=== PATIENT | female | born 1945 | race Caucasian/White ===

== ENCOUNTER 2018-12-24 10:24 | Inpatient (IN) | payer MEDICARE ==
--- NOTE | 2018-12-24 10:44 | ED ---
Syncope/Near Syncope - HPI Summary HPI Summary: 73 year old F brought in by EMS to [facility] from [place] independent living accompanied by complains of left frontal hematoma since hitting her frontal head after syncopal episode that occurred at 09:30 today 12/24/18. EMS states that they were called for syncopal episode about 1 hour ago (09:30) today 12/24/18. EMS states that when [place] staff nurse showed up to patient's room, patient's heart rate was low, and patient had a hematoma on her forehead from the syncopal episode. Upon EMS arrival to scene, patient was alert and oriented per EMS. When EMS moved patient to [facility], patient had another syncopal episode during which her eyes were open but patient "wasn't quite there " per EMS. EMS placed patient on classroom monitor and her heart rate was 26 BPM. EMS started an IV and administered 1 mg atropine total after which her heart rate improved to 40s. EKG done by EMS showed bradycardia per EMS. Blood glucose 202. BP's per EMS were 120's to 140's. Pt denies chest pain. Patient states she started having shortness of breath after her syncopal episode, in the ambulance , on her way to the ED. EMS reports of headache. Patient reports diffuse headache that started this morning immediately after she woke up. Patient reports posterior neck pain. Denies ear pain, jaw pain. Denies fever, nausea/ vomiting. She states she had difficultly cleaning her house this morning as it was taking her longer than usual to clean her house. Patient states she ambulates without a cane. The patient rates the pain 7/10 in severity per nurse triage note. Symptoms aggravated by nothing. Symptoms alleviated by 1 mg atropine. PMHx: hypertension for which she takes lisinopril. Denies PMHx LA and syncope. FHx: CHF in father. Vital signs while in room: HR 41 BPM, BP 140/61, O2 sat 96% Home Medications Medication Instructions Recorded Confirmed Type Calcium Carb/Vit D3/Minerals 2 tab PO DAILY 12/24/18 12/24/18 History [Calcium 600+D Plus Minera] Cetirizine* [ZyrTEC 10 MG TAB*] 10 mg PO DAILY 12/24/18 12/24/18 History Diclofenac 1% GEL (NF) [Voltaren 1 applic TOPICAL QID PRN 12/24/18 12/24/18 History 1% GEL (NF)] Fluticasone NASAL SPRAY 50MCG* 2 spray BOTH NARES DAILY 12/24/18 12/24/18 History [Flonase NASAL SPRAY 50MCG*] Folic Acid TAB* [Folvite TAB*] 400 mcg PO DAILY 12/24/18 12/24/18 History Magnesium Oxide TAB* [MagOx 400 250 mg PO DAILY 12/24/18 12/24/18 History TAB*] Vitamin B Complex CAP* [B Complex 1 cap PO DAILY 12/24/18 12/24/18 History CAP*] - History Of Current Complaint Hx Obtained From: Patient, Family/Dental Laboratory Manager - , Denilson, a retired anesthesiologist, EMS Onset/Duration: Sudden Onset, Lasting Hours - 09:30 (1 hour ago) today 12/24/18, then second episode near syncope/syncope when placed on EMS stretcher, Still Present Timing: Constant Context: Unwitnessed - first episode unwitnessed, Witnessed - second episode witnessed by EMS Activity At Onset: At Rest Associated Head Trauma: Yes Aggravating Factor(s): Nothing Alleviating Factor(s): Other - 1 mg atropine increased HR from 20's to 40's Associated Signs And Symptoms: Negative - ear pain, jaw pain, fever, nausea/ vomiting, chest pain, Headache, Shortness Of Breath, Other - posterior neck pain , shortness of breath Frequency: Episodes x___ - 2, Episodes Lasting ____ (in Mins/Days/Weeks/Years) - mins - Allergies/Home Medications Allergies/Adverse Reactions: Allergies Allergy/AdvReac Type Severity Reaction Status Date / Time No Known Allergies Allergy Verified 12/24/18 11:43 Home Medications: Home Medications Calcium Carb/Vit D3/Minerals [Calcium 600+D Plus Minera] 2 tab PO DAILY [History Confirmed 12/24/18] Cetirizine* [ZyrTEC 10 MG TAB*] 10 mg PO DAILY 12/24/18 [History Confirmed 12/24] Diclofenac 1% GEL (NF) [Voltaren 1% GEL (NF)] 1 applic TOPICAL QID PRN 12/24/18 [History Confirmed 12/24/18] Fluticasone NASAL SPRAY 50MCG* [Flonase NASAL SPRAY 50MCG*] 2 spray BOTH NARES DAILY 12/24/18 [History Confirmed 12/24/18] Folic Acid TAB* [Folvite TAB*] 400 mcg PO DAILY 12/24/18 [History Confirmed 11/04] Magnesium Oxide TAB* [MagOx 400 TAB*] 250 mg PO DAILY 12/24/18 [History Confirmed 12/24/18] Vitamin B Complex CAP* [B Complex CAP*] 1 cap PO DAILY 12/24/18 [History Confirmed 12/24/18] PMH/Surg Hx/FS Hx/Imm Hx Previously Healthy: No Cardiovascular History: Reports: Hx Hypercholesterolemia, Hx Hypertension Denies: Hx Myocardial Infarction Respiratory History: Reports: Hx Seasonal Allergies GI History: Reports: Hx Gastroesophageal Reflux Disease, Hx Irritable Bowel Musculoskeletal History: Reports: Other Musculoskeletal History - generalized muscle weakness, trochanteric bursitis Sensory History: Reports: Hx Contacts or Glasses, Hx Macular Degeneration Opthamlomology History: Reports: Hx Contacts or Glasses, Hx Macular Degeneration Psychiatric History: Reports: Hx Depression - Cancer History Hx Chemotherapy: No Hx Radiation Therapy: No - Surgical History Surgical History: Yes Surgery Procedure, Year, and Place: hysterectomy Infectious Disease History: No - Family History Known Family History: Positive: Cardiac Disease - CHF, Other - NEG: breast cancer - Social History Lives: With Family - at [facility] Alcohol Use: Daily Alcohol Amount: 3-4 glasses of white wine Substance Use Type: Reports: None Hx Tobacco Use: No Smoking Status (MU): Never Smoked Tobacco Review of Systems Positive: Fatigue. Negative: Fever ENT: Negative - jaw pain Negative: Ear Ache Negative: Chest Pain Positive: Shortness Of Breath Negative: Vomiting, Nausea Positive: no symptoms reported Musculoskeletal: Negative Positive: Other - left frontal hematoma Positive: Headache, Syncope Psychological: Normal All Other Systems Reviewed And Are Negative: Yes Physical Exam - Summary Physical Exam Summary: Appearance: Well-appearing, no pain distress, well-nourished Skin: Warm, color reflects adequate perfusion, dry, left frontal 3-cm hematoma, farhad on neck which she states has been there for years Head: Hematoma noted as described above Eyes: PERRL, EOMI, no nystagmus ENT: Normal inspection, no hemotympanum, no Fisher's sign, bite is in tact, no pain on jaw with palpation Neck: Supple, no nodes, no JVD, no spinal tenderness Respiratory: Lungs clear, normal breath sounds, no respiratory distress Chest wall: No rib tenderness, no crepitus, no ecchymosis Cardio: Bradycardia and regular rhythm, No murmur, pulses normal, brisk capillary refill Abdomen: Soft, nontender, no rebound, no guarding, no masses, non-distended Bowel sounds: Present Musculoskeletal: Strength Intact/ROM intact, no calf tenderness, no edema. Psychological: Normal Neuro: Alert, muscle tone normal, no focal deficit GCS: 15 Triage Information Reviewed: Yes Vital Signs Reviewed: Yes - Mar[place]and Coma Scale Best Eye Response: 4 - Spontaneous Best Motor Response: 6 - Obeys Commands Best Verbal Response: 5 - Oriented Coma Scale Total: 15 Procedures - Sedation Patient Received Moderate/Deep Sedation with Procedure: No Diagnostics - Laboratory Result Diagrams: 12/24/18 11:03 12/24/18 11:03 Lab Statement: Any lab studies that have been ordered have been reviewed, and results considered in the medical decision making process. - Radiology CXR Radiology Interpretation Completed By: Radiologist Summary of Radiographic Findings: NO ACTIVE CARDIOPULMONARY DISEASE. ED physician has reviewed this report. - CT Brain CT Interpretation Completed By: Radiologist Summary of CT Findings: 1. Mild soft tissue swelling about the forehead. 2. No acute intracranial abnormality. 3. Mild chronic small vessel ischemic disease is likely. ED physician has reviewed this report. Cervical spine CT Interpretation Completed By: Radiologist Summary of CT Findings: 1. No acute fracture or traumatic malalignment of the cervical spine. 2. Varying degrees of multilevel spondylosis results in at least moderate spinal canal. stenosis at C5-C6. Multilevel neural foraminal stenosis as above. 3. Multilevel spondylolisthesis as above. 4. Fusion of the facets on the left at C6-C7. ED physician has reviewed this report. - EKG 1048 Cardiac Rate: Bradycardia - 38 BPM EKG Rhythm: 3rd Degree HB ST Segment: Non-Specific Ectopy: None EKG Comparison: Other - no prior to compare Summary of EKG Findings: An EKG at 10:48 reveals rate of 38 BPM. 3rd degree heart block. No prior EKG to compare. ED MD has reviewed and interpreted this EKG. Re-Evaluation - Re-Evaluation First Eval Re-Evaluation Time: 10:47 Change: Unchanged Comment: in room with patient. he confirms that patient is Full Code. she reports no chest pain, no distress. HR 37, BP 140/61 Second Eval Re-Evaluation Time: 12:10 Change: Unchanged Comment: Dr. Guillen, liquid waste treatment plant operator, in room with patient Third Eval Re-Evaluation Time: 12:41 Change: Worse Comment: Patient having long pauses with no beats. Patient is alert and talking. Dr. Guillen, liquid waste treatment plant operator, is aware Fourth Eval Re-Evaluation Time: 12:48 Change: Unchanged Comment: Dr. Guillen evaluated patient for long pauses Fifth Eval Re-Evaluation Time: 12:56 Change: Worse Comment: ABC Alert. Dr. Guillen and Dr. Sauceda in room with patient Course/Dx Course Of Treatment: 73 year old F arriving via EMS to [facility] from [facility] accompanied by complains of left frontal hematoma, headache, and bradycardia (in the 20's with good BP), and hitting her frontal head after unwitnessed syncopal episode that occurred at 09:30 today 12/24/18. Pt had a second syncope episode witnessed by EMS upon loading pt on the EMS stretcher, with HR in the 20's, was given atropine 1mg IV, with improvement of HR to 40's with adequate BP 120's -140's systlic. Physical exam findings: The patient is well-appearing, in no pain distress. She has a left frontal 3-cm hematoma and a farhad on neck which she states has been there for years. She is bradycardic. Patient medications reviewed this visit. Nurses notes reviewed. Allergies noted. High blood pressure noted. Bloodwork results with no significant abnormalities except for MCH 32, absolute lymphs 0.8, carbon dioxide 18, anion gap 15, glucose 162, lactic acid 3.1, magnesium 1.7, AST 99, ALT 60, troponin I 0.07, BNP 170, thyroxine 4.53. Aware of lactic acid 3.1 and troponin 0.07 at 11:46. An EKG at 10:48 reveals rate of 38 BPM. 3rd degree heart block. No prior EKG to compare. CXR shows, per radiologist: NO ACTIVE CARDIOPULMONARY DISEASE. CT Brain shows, per radiologist: 1. Mild soft tissue swelling about the forehead. 2. No acute intracranial abnormality. 3. Mild chronic small vessel ischemic disease is likely. CT Cervical spine shows, per radiologist: 1. No acute fracture or traumatic malalignment of the cervical spine. 2. Varying degrees of multilevel spondylosis results in at least moderate spinal canal. stenosis at C5-C6. Multilevel neural foraminal stenosis as above. 3. Multilevel spondylolisthesis as above. 4. Fusion of the facets on the left at C6-C7. In the ED course, the patient was given ice for the hematoma. At 11:02, spoke with Dr. Sauceda, cardiology, who will evaluate patient 's EKG and call back. Dr. Sauceda recommends admission to the hospitalist at 11: 30. Spoke with [address] Valles, hospitalist, at 11:40 who recommends calling the liquid waste treatment plant operator. Dr. Guillen, liquid waste treatment plant operator, is in room with patient at 12:10. Dr. Guillen agrees to admit patient. The patient will be admitted to Dr. Guillen. The patient is agreeable with this plan. While in the ED, the patient had long pause with p waves but no complexes. Spoke with Dr. Guillen at 12:43 who is aware. He evaluated patient for the long pauses at 12:48. At 12:56, patient with twitching movements, decreased responsiveness and long pause. ABC Alert called at 12:56. Dr. Guillen and Dr. Sauceda are in room. They intubated the patient. Dr. Sauceda placed temporary transvenous pacer. See ABC alert sheet. - Diagnoses Differential Diagnosis/HQI/PQRI: Positive: Coronary Artery Disease, Dysrhythmia , Myocardial Infarction, Vasovagal Episode Provider Diagnoses: Third degree heart block, Temporary transvenous cardiac pacemaker present, Hypotension, Syncope During the Visit The Following Alert/Code Occurred: ABC Alert - 12:56 - Physician Notifications Discussed Care of Patient With: Carlos Sauceda Time Discussed With Above Provider: 11:02 Instructed by Provider To: Other - Dr. Sauceda, cardiology, will evaluate patient' s EKG and call back. Dr. Sauceda recommends admission to the hospitalist at 11: 30. Spoke with Dr. Valles, hospitalist, at 11:40 who recommends calling the liquid waste treatment plant operator. Dr. Guillen, liquid waste treatment plant operator in room with patient at 12:10. He is aware of long pauses with p waves and no complexes at 12:43. - Critical Care Time Critical Care Time: 30-74 min - 30 minutes Discharge ED - Sign-Out/Discharge Documenting (check all that apply): Patient Departure - Admit to ICU All imaging exams completed and their final reports reviewed: Yes - Discharge Plan Condition: Stable Disposition: ADMITTED TO [facility] - Billing Disposition and Condition Condition: STABLE Disposition: Admitted to [facility] - Attestation Statements Document Initiated by Scribe: Yes Documenting Scribe: Cammie Colin Provider For Whom Raúl is Documenting (Include Credential): Ingrid Mariscal MD Scribe Attestation: Camime Del Cid, scribed for Ingrid Mariscal MD on 12/25/18 at 0215. Scribe Documentation Reviewed: Yes Provider Attestation: The documentation as recorded by the Cammie meza accurately reflects the service I personally performed and the decisions made by me, Ingrid Mariscal MD Status of Scribe Document: Viewed
[2018-12-24 11:22] LABS: ABS Lymphocytes 0.8 10^3/ul (1.0-4.8); ABS Monocytes 0.6 10^3/ul (0-0.8); ABS Neutrophils 5.6 10^3/ul (1.5-7.7); Eosinophil % 0.4 %; Hematocrit 41 % (35-47); Hemoglobin 13.7 g/dL (12.0-16.0); Mean Corpuscular HGB Conc 33 g/dL (31-36); Mean Corpuscular Hemoglobin 32 pg (27-31); Mean Corpuscular Volume 96 fL (80-97); Mean Platelet Volume 7.9 fL (7.4-10.4); Platelet Count 268 10^3/uL (150-450); Red Blood Count 4.24 10^6 /uL (3.70-4.87); Red Cell Distribution Width 14 % (10-15); White Blood Count 7.1 10^3/uL (3.5-10.8)
[2018-12-24 11:30] LABS: Activated Partial Thrombo Time 28.5 seconds (26.0-38.0); INR 0.89 (0.82-1.09)
[2018-12-24 11:46] LABS: Troponin I 0.07 ng/mL (<0.04)
[2018-12-24 11:56] LABS: ALT 60 U/L (7-52); AST 99 U/L (13-39); Albumin 4.3 g/dL (3.2-5.2); Alkaline Phosphatase 72 U/L (34-104); Anion Gap 15 mmol/L (2-11); BUN/Creatinine Ratio 14.3 (8-20); Blood Urea Nitrogen 11 mg/dL (6-24); CO2 Carbon Dioxide 18 mmol/L (22-32); Chloride 106 mmol/L (101-111); Creatine Kinase 65 U/L (10-223); EGFR African American 88.7 (>60); EGFR Non-African American 73.3 (>60); Globulin 2.2 g/dL (2-4); Glucose 162 mg/dL (70-100); Magnesium 1.7 mg/dL (1.9-2.7); Sodium 139 mmol/L (135-145); Total Protein 6.5 g/dL (6.4-8.9)
[2018-12-24 12:11] LABS: T4, Total 4.53 mcg/dL (6.09-12.23)
[2018-12-24 12:15] LABS: TSH (Thyroid Stimulating Horm) 3.83 mcIU/mL (0.34-5.60)
[2018-12-24] MEDS ORDERED: ceFAZolin 2 GM in NS PREMIX(*) 2 GM/100 ML BAG IVPB ONE ×2 (12:29→12:57)
[2018-12-24] MEDS ORDERED: ceFAZolin 1 GM/10 ML flush(*) SYRINGE for pocket flush (cardiology) FLUSH ONE (12:29)
--- NOTE | 2018-12-24 12:46 | HP ---
H&P (Free Text) History and Physical: History and Physical -- Critical Care Limitations in history/physical: none HPI: 73y F w/pmhx of HTN, depression; comes in to ER via EMS for syncope at [facility] ([place]). This mornign she was cleaning the house and had weakness for 45 min, denied cp/sob at that time. She sat down, got up and suddenly felt weak and felt she almost blacked out. She fell and was awake the whole time and remembers hitting her head. She was on floor, as assitant called for help. She felt some slight shortness of breath on the floor. no chest pain. no dizziness/headache. nausea none. She vomitted once when the nurse came to see her. She felt no palpitations. He noted a slow heart rate, EMS was called, noted HR 20s, given atropine 1mg and improved to 40s. She was taken to [facility] ER. She reports episodic weakness the past few months, was told normal BP and HR when she got checked by her PCP. She is compliant with her medications (lisinopril, zoloft). no history of rashes. Walks with a cane. in ER, she is awake, alert. HR 50s. BP stable. on RA, no distress. EKG noted to have complete heart block with junctional escape rhythm, no acute st/t change changes noted, some inferior inverted twaves noted. Cardiology has consulted; discussed with patient plan for PPM insertion. ED/floor Course: as above ROS: negative except for pertinent positives mentioned above PMHx: Hypertension, Depression PSHx: hysterectomy Family History: none significant Social History: Alcohol-~1 bottle of wine/day, Smoking-none, Drug use-none; Job- none; lives with in [facility] facility Allergies: Allergies Allergy/AdvReac Type Severity Reaction Status Date / Time No Known Allergies Allergy Verified 12/24/18 11:43 Home Medications: Calcium Carb/Vit D3/Minerals [Calcium 600+D Plus Minera] 2 tab PO DAILY [History Confirmed 12/24/18] Cetirizine* [ZyrTEC 10 MG TAB*] 10 mg PO DAILY 12/24/18 [History Confirmed 12/24] Diclofenac 1% GEL (NF) [Voltaren 1% GEL (NF)] 1 applic TOPICAL QID PRN 10/08/19 [History Confirmed 12/24/18] Fluticasone NASAL SPRAY 50MCG* [Flonase NASAL SPRAY 50MCG*] 2 spray BOTH NARES DAILY 12/24/18 [History Confirmed 12/24/18] Folic Acid TAB* [Folvite TAB*] 400 mcg PO DAILY 12/24/18 [History Confirmed 11/04] Magnesium Oxide TAB* [MagOx 400 TAB*] 250 mg PO DAILY 12/24/18 [History Confirmed 12/24/18] Vitamin B Complex CAP* [B Complex CAP*] 1 cap PO DAILY 12/24/18 [History Confirmed 12/24/18] Tele: sinus rhythm with complete heart block, HR 50s Vitals: Vital Signs Temp 96.9 F 12/24/18 10:26 Pulse 40 12/24/18 10:26 Resp 16 12/24/18 10:26 BP 140/61 12/24/18 10:26 Pulse Ox 95 12/24/18 10:26 Intake & Output 12/23/18 12/24/18 12/24/18 18:59 06:59 18:59 Weight 62.142 kg O2/Vent: RA Infusions: NS 75cc/hr Current Medications: Cefazolin Sodium/Dextrose (Kefzol Syringe 1 Gm/10 Ml Flush Syringe(*)) 1 gm FLUSH ONCE ONE Stop: 12/24/18 12:30 Cefazolin Sodium/Dextrose (Kefzol 2 Gm Premix In Ors(*)) 2 gm in 50 mls @ 100 mls/hr IVPB ONCE ONE Stop: 12/24/18 12:58 Sodium Chloride (Ns 0.9% 1000 Ml) 1,000 mls @ 75 mls/hr IV PER RATE SPENCER Physical Exam: Constitutional: awake, alert, no distress, no diaphoresis Head: left frontal/supraorbital small hematoma/swelling, nonttender Eyes: no pallor, no icterus ENT: moist mucous membranes Neck: soft, supple, no jvd, no stridor CVS: otoniel+, regular, no murmur Chest/Resp: bilateral air entry, no rhales, no wheeze, no rhonchi, no acc muscle use Abdomen/GI: soft, nontender, nondistended, BS+ Ext/Msk: warm, pulses+, no edema Skin: intact, warm Neuro: awake, alert, orientedx3, moving all extremities, no gross focal deficit Psych: normal affect Labs: reviewed Imaging: CT brain 12/24 - small soft tissue swelling on left frontal CXR - no acute infiltrate noted Assessment: 73y F w/pmhx of HTN, depression; comes in to ER via EMS for syncope at [facility] ([place]). Pre-syncope/syncope episode, vomitting x1. FOund to have bradycardia 20s, given atropine by EMS. Shortness of breath after fall. EKG in ER demonstrating NSR with complete heart block and junctional escape. -Complete Heart block with junctional escape -Hyperlactatemia 2/2 to hypoperfusion -Weakness -Shortness of breath Plan: Neuro- -syncope/fall likely from hypoperfusion from CHB -keep bedrest -nonfocal findings on exam -Left frontal small hematoma; CT brain negative. -does drink 1 bottle of wine/day; keep WAM protocol; last drink yesterday -Delirium prec; avoid BDZ CVS- -HR CHB; stable BP now -Cardiology consult; plan for PPM today? -TTE for eval of dyspnea/syncope -mild troponin rise, trend q6h; EKG with mild inferior twave inv -Maintain MAP>65 Resp- -RA, no distress -No active shortness of breath at this time -CXR with minimal/no congestion -Wean Fio2 to keep sat>92% ID- afebrile. wbc normal. CXR without focal process. -Abx for PPM implantation ordered GI- -NPO for PPM -GI prophylaxis Renal- -noted elevated LA, likely from hypoperfusion -IVF NS 75cc/hr, reassess -strict I/O, replete to keep K>4, Mg>2 -baird as indicated Heme- hg stable, no bleeding Endo- Maintain BG<200, insulin protocol as needed. check hba1c Musculsk- pressure ulcer prophylaxis. Bedrest. Wounds- none Nutrition- NPO DVT prophylaxis: SCD GI prophylaxis: - Central Line:- Arterial Line:- Baird Cathetor:- Disposition: Admit to ICU; Expected LOS>2 midnights; Patient requires Critical Care/ICU for complete heart block Patient Clinical Status: guarded Code Status: full code Seamus Guillen MD Signal Tester (Electronically Signed)
[2018-12-24] MEDS ORDERED: DOPamine 800 MG/250 ML IVPREM* 800 MG/250 ML ML CENTR SCH ×2 (13:00)
--- NOTE | 2018-12-24 13:52 | PN ---
Progress Note - Progress Note Date of Service: 12/24/18 Note: Critical Care Called for bradycardia which worsened, came down HR 30s slower, Was going to start dopamine infusion. Patient then became more bradycardic to 30s, then developed asystole. CPr started for a few seconds, she awoke. Given atropine 1mg IV push. Started TCP pacing but not capturing despite mA 66 and Rate 60. Atropine seemed to have worked and HR 30s Dr came to bedside, placed TVP RIJ to pace 70. Awake, alert, no distress. on NC, sats okay. BP stable now. plan for PPM today still. at bedside, updated. Assessment- -Cardiac Arrest -Complete Heart block I was present during this episode/code Seamus Guillen MD Asset Protection Lead
[2018-12-24] MEDS ORDERED: Lidocaine 1% INJ* 10 MG/ML 30 ML SDV ONE (14:06)
[2018-12-24] MEDS ORDERED: Midazolam* 1 MG/ML 5 ML VIAL (5 MG) ONE (14:08)
[2018-12-24] MEDS ORDERED: Atropine SYRINGE* 0.1 MG/ML 10 ML SYRINGE (1 MG) ONE (14:08)
[2018-12-24] MEDS ORDERED: fentaNYL* 50 MCG/ML 2 ML VIAL (100 MCG VIAL) ONE (14:08)
[2018-12-24] MEDS ORDERED: Ondansetron INJ* 2 MG/ML VIAL ONE (14:13)
--- NOTE | 2018-12-24 14:42 | CONS ---
CC: Dr. Beatrice Lambert * CARDIOLOGY CONSULTATION: DATE OF CONSULT: 12/24/18 INDICATION FOR CONSULTATION: Third-degree heart block. HISTORY OF PRESENT ILLNESS: The patient is a 73-year-old female with little past medical history, who has been feeling more weak and tired for the past couple of days. This morning, she got up to clean her house and was feeling profoundly weak. She said she would make her bed and then have to sit and rest. She had another episode where she was cleaning her countertops and had to sit down and rest. She denied any angina. She denied any palpitations. She denied any profound shortness of breath or nausea. The patient states that at one point she went to turn to go to the bathroom, felt weak and ended up on the floor. She says she woke almost immediately and was concerned that she may have broken her glasses in the fall. She denied any pain when she had the fall. She did describe a little bump on her head. At that time, she decided to come to the emergency room. In the emergency room, she was found to have a third-degree heart block. PAST MEDICAL HISTORY: Significant for chronic pain, osteoarthritis, osteoporosis. PAST SURGICAL HISTORY: Unknown. OUTPATIENT MEDICATIONS: 1. Folic acid 400 mg a day. 2. Zyrtec 10 mg a day. 3. Voltaren topical as needed 4 times a day. 4. Calcium carbonate vitamin once a day. 5. Flonase nasal spray 2 sprays b.i.d. 6. Magnesium oxide 250 mg daily. ALLERGIES: No known drug allergies. FAMILY HISTORY: No family history of early coronary artery disease or cardiac arrhythmias. SOCIAL HISTORY: She is retired. She lives with her who is a retired anesthesiologist. She was previously living in [place], recently moved to the [facility]. She now lives at [facility]. She denies tobacco use. She does have heavy alcohol use. No illicit drug use. REVIEW OF SYSTEMS: Negative for fevers or chills. Negative for changes in bowel or bladder habits. Negative for changes in weight. Other 12-point review is unremarkable. PHYSICAL EXAM: Height is 5 feet 1 inch, weight 137 pounds, temperature 96.9, heart rate 40, blood pressure 140/61, respiratory rate is 16, oxygen saturation 95% on room air. Sclerae anicteric. Oropharynx is pink without erythema. Carotids are 2+ without bruits. JVD is normal. Thyroid is normal. Cardiac Exam: S1, S2 without any murmurs, rubs, or gallops. Lungs are clear to auscultation bilaterally. There is no dullness to percussion. Abdomen is soft , nontender, nondistended with normoactive bowel sounds. Extremities show no edema. She has 2+ pulses throughout. The patient is awake, alert, and oriented. She moves all 4 extremities equally. DIAGNOSTIC STUDIES/LAB DATA: CBC within normal limits. Chemistries within normal limits. Troponin is minimally elevated at 0.07. TSH is normal. AST and ALT are minimally elevated. EKG shows third-degree heart block. No evidence of ST segment elevation or depression. IMPRESSION: This is a 73-year-old female who is admitted to the hospital with third-degree heart block and syncope. The patient does not have any reversible causes for atrial fibrillation, no recent rashes, no medications that would cause heart block. PLAN: For now my recommendation, the patient to undergo dual-chamber pacemaker implantation. The risks and benefits of this were described in great detail to her and her . They agreed to proceed. Further recommendations after her pacemaker implantation. [id number]/[facility] #: [id number] DOMENIC
[2018-12-24] MEDS ORDERED: Acetaminophen TAB* 325 MG PO PRN (16:30)
[2018-12-24] MEDS ORDERED: Zolpidem TAB* 5 MG PO PRN (16:33)
[2018-12-24] MEDS: oxyCODONE/Acetamin 5/325 MG* TAB PO PRN ×2 (17:56→22:58)
--- NOTE | 2018-12-24 20:49 | PRO ---
CC: Dr. Beatrice Lambert * DATE OF PROCEDURE: 12/24/18 - ROOM #442 PROCEDURE: Temporary pacemaker implantation. INDICATION: Third-degree heart block, asystole. The patient is a 73-year-old female who had a syncopal episode at home. When she arrived in the emergency room, she was in third-degree heart block. She was scheduled for a permanent pacemaker implantation later in the afternoon. The patient suddenly had 20 seconds of non-conducted P waves and a near syncopal episode. Because of the urgency of the situation, a temporary wire was recommended. A total of 45 minutes of critical care time was attended to this patient. DESCRIPTION OF PROCEDURE: The patient was placed in the Trendelenburg position. Her right anterior neck was prepped and draped in the usual fashion. 1% lidocaine was used for local anesthesia. Under ultrasound guidance, the jugular vein was entered via Seldinger technique and a guidewire was placed. Over the guidewire, a 5-Kinyarwanda sheath introducer was placed and sutured into position. Through the sheath, a balloon-tipped temporary pacing wire was placed under active pacing. The pacemaker captured all the way down to 1 millivolt. The wire was sutured into the position. The patient was brought to the operating room for dual chamber pacemaker implantation. The patient tolerated the procedure well and there were no complications. [id number]/CPS #: [id number] MTDD
[2018-12-24] MEDS: ceFAZolin VIAL(*) 1 GM in NS 0.9% 50 ML* 50 ML IVPB SCH (21:30)
[2018-12-24] MEDS: NS 0.9% 1000 ML** 1,000 ML IV SCH (21:33)
--- NOTE | 2018-12-24 23:40 | OP ---
CC: Dr. Beatrice Lambert * DATE OF OPERATION: 12/24/18 - ROOM #442 DATE OF : 43 SURGEON: Carlos Sauceda MD ANESTHESIA: Local anesthesia with conscious sedation. PRE-OP DIAGNOSIS: POST-OP DIAGNOSIS: OPERATIVE PROCEDURE: Dual chamber pacemaker implantation. INDICATION FOR PROCEDURE: Third-degree heart block. The patient is a 73-year-old female who was admitted to the emergency room after having a syncopal episode at home. While she was in the emergency room, she had a third-degree heart block and then had runs of P-wave nonconduction after 30 seconds with loss of consciousness. The patient underwent emergency temporary wire implantation and then on to permanent pacemaker implantation. ESTIMATED BLOOD LOSS: Nil. COMPLICATIONS: None DESCRIPTION OF PROCEDURE: The patient was brought to the procedure room in a fasting state. Informed consent had been obtained prior to the procedure. All labs were reviewed. The patient was placed supine on the procedure table. Her left deltopectoral area was cleaned and draped in the usual fashion. 1% lidocaine was used for local anesthesia. Under ultrasound guidance, the axillary vein was entered by a Seldinger technique and a guidewire was placed. A second guidewire was placed in the same technique. A 3.5-cm incision was made in the pectoral area and blunt dissection was carried down to the pectoral fascia and a pacemaker pocket was made. Over the guidewire, a 7-[place] African sheath introducer was made, through which a right ventricular lead was advanced to the RV apex. The right ventricular lead is a Medtronic, model 5076, serial number [id number], had an impedance of 755 ohms, threshold 0.9 volts at 0.5 milliseconds. The ventricular lead was sutured to the pectoral fascia. Over the second guidewire, a 7-[place] African sheath introducer was placed, through which a right atrial lead was advanced to the high right atrium. The right atrial lead is a Medtronic model 5076, serial number [id number], a P-wave sensitivity of 2.1 , impedance 624 ohms, threshold 2 volts at 0.5 milliseconds. The atrial lead was sutured to the pectoral fascia. Under fluoroscopic guidance, the temporary wire was removed showing no disturbance of the atrial or ventricular lead. The atrial and ventricular leads were attached appropriately to the pacemaker generator. The generator was placed in the pocket. The device was interrogated and noted to be functioning normally. The surgical incision was closed in 3 layers. The patient was returned to her room in stable condition. [id number]/[facility] #: [id number] DOMENIC
[2018-12-25] MEDS: ceFAZolin VIAL(*) 1 GM in NS 0.9% 50 ML* 50 ML IVPB SCH ×2 (03:47→12:25)
--- NOTE | 2018-12-25 07:54 | PN ---
Subjective Date of Service: 12/25/18 Interval History: HD 2 on 12/25/2018 73 y/o F with history of HTN and depression presented with syncope and vomiting ; EMS noted HR of 20's- inc to 40 after atropine; Found to have complete heart block; Hah cardiac arrest with asystole in ED; awoke with CPR; underwent PPM. Vitals stable now. HR in 70. Does not have any complaint. No chest pain, dizziness or weakness Drinks 2-3 glasses of wine every day; around 4 drinks during events Objective Active Medications: Acetaminophen (Tylenol Tab*) 650 mg PO Q4H PRN PRN Reason: PAIN - MILD Cetirizine HCl (Zyrtec*) 10 mg PO DAILY [facility] Fluticasone Propionate (Flonase Nasal [place] 50mcg*) 2 spray BOTH NARES DAILY [facility] Sodium Chloride (Ns 0.9% 1000 Ml) 1,000 mls @ 75 mls/hr IV PER RATE [facility] Last Admin: 12/24/18 21:33 Dose: 75 mls/hr Cefazolin Sodium 1 gm/ Sodium (Chloride) 50 mls @ 200 mls/hr IVPB Q8H [facility] Stop: 12/25/18 12:44 Last Admin: 12/25/18 03:47 Dose: 200 mls/hr Oxycodone/Acetaminophen (Percocet 5/325 Tab*) 1 tab PO Q4H PRN PRN Reason: PAIN - MODERATE Last Admin: 12/24/18 22:58 Dose: 1 tab Zolpidem Tartrate (Ambien Tab*) 5 mg PO ONCE PRN PRN Reason: INSOMNIA Vital Signs - 8 hr 12/24/18 12/25/18 12/25/18 23:59 00:00 03:36 Temperature 98.1 F Pulse Rate 74 Respiratory 16 18 Rate Blood Pressure 118/74 (mmHg) O2 Sat by Pulse 94 94 Oximetry 12/25/18 12/25/18 04:00 04:01 Temperature 98.8 F Pulse Rate 71 Respiratory 18 Rate Blood Pressure 111/58 (mmHg) O2 Sat by Pulse 94 94 Oximetry Oxygen Devices in Use Now: None Exam: Patient is lying on a bed with no acute distress. HEENT: Normocephalic and atraumatic; Dressing wound on right neck; bruise present Lungs: clear vesicular sound heard with no murmur Heart: S1/S2 heard with no murmur Abdomen: Soft, nondistended and nontender. Normal BS heard Extremities: No swelling Neuro: Alert, conscious and oriented. Moving all four extremities equally Result Diagrams: 12/24/18 11:03 12/25/18 13:50 Assess/Plan/Problems-Billing Assessment: 73 y/o F with history of HTN and depression presented with syncope and vomiting ; EMS noted HR of 20's- inc to 40 after atropine; Found to have complete heart block; Had cardiac arrest with asystole in ED; awoke with CPR; underwent PPM. No complaint at present - Patient Problems (1) Cardiac arrest Current Visit: Yes Status: Acute Code(s): I46.9 - CARDIAC ARREST, CAUSE UNSPECIFIED SNOMED Code(s): 284069414 Comment: Had asystole in ED; Woke after CPR and Atropine HR was in 30's Started transcutaneous pacing but didnot capture; placed TVP and underwent PPM Secondary to Complete Heart Block Stable now HR is in 70's No symptom (2) Complete heart block Current Visit: Yes Status: Acute Code(s): I44.2 - ATRIOVENTRICULAR BLOCK, COMPLETE SNOMED Code(s): 25752280 Comment: Presented with weakness, vomiting and syncope No history of Heart disease and not on any AV blocking meds. No tick bite; History negative for lyme disease, sarcoidosis, amyloidosis Electrolyte normal Cause unknown; could be fibrosis and sclerosis of conducting system as a part of normal aging Underwent PPM; Got cefazolin No symptom at present Echo normal with EF of 55-60%. (3) Hypertension Current Visit: Yes Status: Acute Code(s): I10 - ESSENTIAL (PRIMARY) HYPERTENSION SNOMED Code(s): 90613777 Comment: Used to take lisinopril 20 mg daily Bp on soft side On hold (4) Depression Current Visit: Yes Status: Acute Code(s): F32.9 - MAJOR DEPRESSIVE DISORDER , SINGLE EPISODE, UNSPECIFIED SNOMED Code(s): 51753681 Comment: On zoloft 150 mg daily (5) DVT prophylaxis Current Visit: Yes Status: Acute Code(s): Z29.9 - ENCOUNTER FOR PROPHYLACTIC MEASURES, UNSPECIFIED SNOMED Code(s): 118234481 Comment: On heparin (6) Full code status Current Visit: Yes Status: Acute Code(s): Z78.9 - OTHER SPECIFIED HEALTH STATUS SNOMED Code(s): 717376979 Status and Disposition: Medicine Inpatient; Cardiology following d/c tomorrow; going to [facility] Attending: Hilda Downey Attestation Documenting Resident: Keshia Huizar Supervising Physician: Hilda Downey Attending/Supervising Physician Comment: Agree with resident note, attending addendum: 73F, largely healthy with HTN and depression, presented in [facility] c/b brief asystole with ROSC after trasnvenous pacing now sp dual chamber on 12/24 -Doing remarkably well, labs normalized -Anticipate d/c 12/26 Attestation: This service has been performed in part by a resident under the direction of a teaching physician.I, Hilda Downey, performed the service, or was physically present during the critical, or guerra portions of the service, furnished by the resident. I participated in the management of the patient.
[2018-12-25] MEDS ORDERED: Fluticasone NASAL SPRAY 50MCG* 16 gm SPRAY BTL BOTH NARES SCH (09:00)
[2018-12-25] MEDS ORDERED: Cetirizine* 10 MG TAB PO SCH (09:00)
[2018-12-25] MEDS ORDERED: Folic Acid TAB* 1 MG PO SCH (09:00)
[2018-12-25] MEDS ORDERED: Magnesium Oxide TAB* 400 MG PO SCH (09:00)
--- NOTE | 2018-12-25 09:37 | ECHO ---
*[facility]* [place] [address] Fax #: [phone] Transthoracic Echocardiogram Patient: Ashli Nicole : 1945 Study Date: 12/25/2018 Age: 73 Gender: F HR: 76 bpm Height: 61 in /154.9 cm BSA: 1.61 m^2 Weight: 136.7 lb /62.1 kg BMI: 25.9 kg/m^2 *Track Repair Person: Kay Boateng [facility] *Referring Physician: * Seamus Guillen *Reading Physician: Kylie Zuniga MD Indications: Syncope. 3rd degree heart block. History: Risk factors: Hypertension. Labs, prior tests, procedures, and surgery: Permanent pacemaker system implantation (12/24/2018). Conclusions Summary: - Left ventricle: Systolic function is normal. The estimated ejection fraction is 55-60%. - Right ventricle: Pacer wire noted in the right ventricle. - Right atrium: Pacer wire noted in right atrium. - Mitral valve: There is trace regurgitation. - Aortic valve: There is trace regurgitation. - No previous echocardiogram available. Study data: Transthoracic echocardiogram. Procedure: Transthoracic echocardiography was performed. Image quality was good. Complete 2D, spectral Doppler, and color flow Doppler. Location: Bedside. Patient status: Inpatient. Patient room number: 442. Rhythm: Paced rhythm. Findings Left ventricle: The cavity size is normal. Wall thickness is mildly increased. Systolic function is normal. The estimated ejection fraction is 55-60%. Wall motion is normal; there are no regional wall motion abnormalities. Doppler parameters are consistent with abnormal left ventricular relaxation (grade 1 diastolic dysfunction). Right ventricle: The cavity size is normal. Pacer wire noted in the right ventricle. Systolic function is normal. Left atrium: The atrium is at the upper limits of normal in size. Right atrium: The atrium is normal in size. Pacer wire noted in right atrium. Mitral valve: The Mitral valve annulus appears calcified. The leaflets are mildly thickened. Mild thickening, with involvement of chords. There is no evidence of stenosis. There is trace regurgitation. Aortic valve: The leaflets are normal thickness. There is no evidence of stenosis. There is trace regurgitation. Tricuspid valve: The leaflets are normal thickness. There is no evidence of stenosis. There is trace regurgitation. Pulmonic valve: The leaflets are normal thickness. There is no evidence of stenosis. There is trace regurgitation. Aorta: The aortic root appears normal. The aortic arch appears normal. Pericardium: A trace pericardial effusion is identified. Pulmonary arteries: The main pulmonary artery is normal-sized. Systolic pressure is within the normal range. Systemic veins: Inferior vena cava: The vessel is normal in size. There is (< 50%) respiratory change in the IVC dimension. Measurements Left ventricle Value Ref Aortic valve continued Value Ref CHELSEA, LAX (L) 3.7 cm 3.8 - 5.2 Peak grad, S 9.0 mm Hg ----- ESD, LAX (L) 2.0 cm 2.2 - 3.5 LVOT/AV, VTI ratio 0.77 ----- FS, LAX (H) 46 % 27 - 45 PW, ED, LAX (H) 1.0 cm 0.6 - 0.9 Mitral valve Value Ref EF (H) 78 % 54 - 74 Peak E 0.8 m/sec ----- E', lat jan, TDI (L) 5.9 cm/sec >=10.0 Peak A 0.97 m/sec - ---- E/e', lat jan, 13 Decel time 114 ms ---- - TDI Peak grad, D 2.5 mm Hg ----- E', med jan, TDI (L) 6.4 cm/sec >=7.0 Peak E/A ratio 0.8 - ---- E/e', med jan, 12 TDI Pulmonic valve Value Ref E', avg, TDI 6.2 cm/sec Peak v, S 0.7 m/sec ---- - E/e', avg, TDI 13 <=14 Peak grad, S 2.0 mm Hg - ---- LVOT Value Ref Tricuspid valve Value Ref Peak tamra, S 1.1 m/sec TR peak v 2.6 m/sec <=2.8 VTI, S 22.0 cm Peak RV-RA grad, S 27 mm Hg ----- Peak grad, S 5 mm Hg Mean grad, S 2 mm Hg Aortic root Value Ref Root diam 2.8 cm <3.9 Ventricular septum Value Ref IVS, ED (H) 1.1 cm 0.6 - 0.9 Ascending aorta Value Ref AAo AP diam, S 3.2 cm ----- Right ventricle Value Ref CHELSEA, LAX 2.0 cm Aortic arch Value Ref CHELSEA minor ax, A4C 2.8 cm 1.9 - 3.5 Arch diam 3.2 cm ----- mid Pressure, S 30 mm Hg Decending aorta Value Ref Yee peak tamra 0.33 m/sec ----- Left atrium Value Ref AP dim, ES 2.70 cm 2.70 - Pulmonary artery Value Ref 3.80 Pressure, S 28.0 mm Hg ----- ML dim, A4C 3.8 cm SI dim, A4C 5.5 cm Inferior vena cava Value Ref Vol/bsa, ES, A/L 31 ml/m^2 16 - 34 Diam 1.4 cm ----- Right atrium Value Ref Pulmonary veins Value Ref SI dim, ES 4.9 cm 3.4 - 5.3 Peak v, S 0.5 m/sec ----- ML dim, ES, A4C 3.4 cm 2.6 - 4.4 Peak v, D 0.29 m/sec ----- Estimated RAP 3 mm Hg Peak S/D ratio 1.8 ----- A rev duration 95 ms ----- Aortic valve Value Ref Jan diam, ED 2.1 cm Peak v, S 1.46 m/sec VTI, S 28.4 cm Mean grad, S 5.0 mm Hg Legend: (L) and (H) farhad values outside specified reference range. Prepared and electronically signed by Kylie Reynolds MD 12/25/2018 09:36
[2018-12-25] MEDS: oxyCODONE/Acetamin 5/325 MG* TAB PO PRN (11:08)
[2018-12-25] MEDS: NS 0.9% 1000 ML** 1,000 ML IV SCH (12:26)
[2018-12-25 12:28] LABS: Blood Urea Nitrogen 9 mg/dL (6-24); CO2 Carbon Dioxide 25 mmol/L (22-32); Chloride 107 mmol/L (101-111); EGFR African American 145.9 (>60); EGFR Non-African American 120.6 (>60); Glucose 127 mg/dL (70-100); Sodium 138 mmol/L (135-145)
[2018-12-25 12:36] LABS: Troponin I 0.15 ng/mL (<0.04)
[2018-12-25 13:08] LABS: Anion Gap 6 mmol/L (2-11)
[2018-12-25] MEDS: Heparin VIAL(*) 5000 UNITS/ML VIAL (FIVE THOUSAND) SUBCUT SCH ×2 (13:14→21:22)
[2018-12-25 14:28] LABS: Urine Appearance Clear; Urine Bilirubin Negative (Negative); Urine Blood Negative (Negative); Urine Color Yellow; Urine Glucose Negative (Negative); Urine Ketones Negative (Negative); Urine Nitrite Negative (Negative); Urine Protein Negative (Negative); Urine Urobilinogen Negative (Negative)
--- NOTE | 2018-12-26 00:12 | DS ---
CC: Dr. Beatrice Lambert; Dr. Carlos Sauceda * DISCHARGE SUMMARY: DATE OF ADMISSION: 12/24/18 DATE OF DISCHARGE: Date of anticipated discharge is 12/26/18. PRIMARY CARE PROVIDER: Dr. Beatrice Lambert. ASTRONOMY PROFESSOR: Dr. Carlos Sauceda. DISPOSITION AT THE TIME OF DISCHARGE: Stable to go to home to [place] where she resides PRIMARY DIAGNOSES: 1. Complete heart block. 2. Status post pacemaker placement. SECONDARY DIAGNOSES: 1. Hypertension. 2. Depression. MEDICATIONS AT THE TIME OF DISCHARGE: 1. Lisinopril 20 mg p.o. daily. 2. Sertraline 150 mg p.o. daily. 3. Oxycodone/acetaminophen 5/325 q.12 hours p.r.n. for 2 days status post discharge. 4. Acetaminophen 650 mg p.o. q.4 hours p.r.n. for pain. 5. Naproxen 500 mg p.o. b.i.d. p.r.n. for pain. Medication changes on this hospitalization include the addition of pain medications: Oxycodone/acetaminophen and naproxen to be taken as needed status post pacemaker placement. HISTORY OF PRESENT ILLNESS AND HOSPITAL COURSE: A 73-year-old female who reported to the emergency room on 12/24/18 with 1 day of weakness and presyncope accompanied by a fall. She said that she had been cleaning her house and felt suddenly weak while standing up, fell to the floor and called for help. She did feel some slight shortness of breath, but no chest pain, no dizziness or headache at that time. She vomited once. She is domiciled to [facility] and a nurse came to see her. They decided to call emergency services. EMS arrived and her heart rate was noted to be in the 20s and she was given atropine, which she was responsive to, which improved to the 40s. She was taken to [facility] Emergency Room and in the ER, she was awake, alert, and initially heart rate was in the 50s. An EKG was done, which was noted to have complete heart block with junctional escape rhythm, but no acute ST or T changes noted. Cardiology was consulted and initially planned for nonemergent pacemaker, although while in the emergency room her complete heart block returned again with rates down to the 20s and then she actually had a period of asystole for 20 seconds. CPR was started and an emergent transvenous pacer was inserted while in the emergency room. The patient thankfully had return of spontaneous circulation with the assistance of transvenous pacemaker and she was taken urgently to cardiology procedure where she had a pacemaker inserted on . She was admitted to the hospital and her hospital course by problem is as follows: 1. Complete heart block. The patient had labs drawn, which showed normal thyroid, troponin initially elevated at 0.07, and BNP of 170. She denies any recent tick bite. She denies any medications or other exposures that could have preceded this complete heart block and she had no evidence of an ischemic event, old scarring or fibrosis. Ultimately, it was thought she had idiopathic causes for her complete heart block and she had a successful dual-chamber pacemaker placed on 12/24/18 with no complications. She should follow up with primary care and she should be immobilized for 6 weeks with instructions for pacemaker care. She likely had no complications from this event and is feeling well. She had abnormal labs obviously on admission with an elevated lactic acid , elevated troponins initially at 0.07, which peaked at 0.3 status post procedure and then trended back down to 0.15 by 12/25/18. Her lactic acid also fell to 0.09 by 12/25/18, and her repeat labs were wholly normal with the exception of mildly elevated LFTs. 2. Status post pacemaker placement. The patient tolerated procedure well. It was placed on 12/24/18 urgently. She will have follow up with Dr. Carlos Sauceda. A referral will be sent at the time of discharge. Physical therapy is recommended for her and a order is sent at the time of discharge. She has no chest pain. She is monitored on telemetry for a total of 24 hours with no adverse events. She has no complications like bleeding from the site or pain and the chest x-ray showed that it has been positioned well. 3. Hypertension. Her home medications were held, it could be resumed on discharge. 4. Pain control. The patient had fine pain control with Tylenol. Four Percocet's were sent home with her and further pain control can be determined by primary care. 5. Depression. Home sertraline was continued. 6. Elevated LFTs. The patient has AST of 99 and ALT of 60. She does have AST to ALT 2:1 elevation, which is concerning for alcohol behavior. She reports that she splits a bottle of wine with her every night. We counseled that this is above the recommended limits and it is likely that she could have some mild steatohepatitis, which can be followed as an outpatient. On the day of discharge, the patient is tolerating diet, ambulating, and voiding freely with no complications. LABS AND STUDIES DURING THIS HOSPITALIZATION: Brain CT on 12/24/18 secondary to the patient's fall, which shows no acute intracranial abnormalities. Cervical spine CT on 12/24/18 shows no fracture. Transthoracic echocardiogram done on 12/24/18, which show ejection fraction 55% to 60% and no valvular pathology. Chest x-ray done on 12/24/18 shows successful placement of pacemaker with no complications. An EKG on 12/25/18, which confirms this placement as well 1 day after procedure. No active other cardiopulmonary disease identified. EKGs were done and initial EKG showed complete heart block with junctional escape rhythm in the 50s. Subsequent EKG showed atrial sensed V -paced pacer spikes and thus she is completely pacer dependent. CONSULTANTS DURING THIS HOSPITALIZATION: Include Cardiology. ITEMS TO FOLLOW UP ON STATUS POST DISCHARGE: 1. Status post pacemaker. The patient should follow up with Cardiology at least yearly and [employer] involved. She is counseled by [employer] as well as Cardiology to follow up. Her questions are largely answered. Pain control and expectant status post pacemaker management is explained to her on discharge and she will engage in physical therapy at [facility] where she is domiciled. 2. Elevated liver function test. This is most likely secondary to alcohol use. We actually counseled her to cut back and recommended no more than 7 drinks per week as she has elevated LFTs. If it is warranted, a liver ultrasound, hep C test can be done at discretion of primary care provider. Plan of care was discussed with the patient and her family who agreed to return to home. She is stable for discharge to home after this dramatic presentation and recovery. She is overall feeling grateful that there were not worst outcomes and pleased that her symptoms let her to seek care early. She has no further question. TIME SPENT: Forty five minutes was spent on the planning of this discharge with over half of that was spent directly at the bedside of the patient providing direct patient care. If there are any questions about the care of this patient during this hospitalization, please do not hesitate to reach out and contact me directly. My cellphone is [phone]. This discharge summary is the description of the events that happened over 3 days, she has a complex medical chart. If there are any specific questions, please refer to the chart or to me directly. [id number]/[facility]PS #: [id number] MTDD
[2018-12-26 03:57] VITALS: BP 152/80
[2018-12-26 05:20] LABS: Albumin 3.8 g/dL (3.2-5.2); Albumin/Globulin Ratio 1.7 (1-3); BUN/Creatinine Ratio 14.6 (8-20); EGFR Non-African American 126.4 (>60); Globulin 2.3 g/dL (2-4); Magnesium 1.7 mg/dL (1.9-2.7); Potassium 3.5 mmol/L (3.5-5.0); Total Bilirubin 0.7 mg/dL (0.2-1.0); Total Protein 6.1 g/dL (6.4-8.9)
[2018-12-26] MEDS: Heparin VIAL(*) 5000 UNITS/ML VIAL (FIVE THOUSAND) SUBCUT SCH (05:33)
[2018-12-26] MEDS ORDERED: Potassium Chlor TAB* 20 MEQ TAB.ER PO ONE (06:30)
[2018-12-26] MEDS ORDERED: Magnesium Oxide TAB* 400 MG PO ONE (06:31)
--- NOTE | 2018-12-26 06:58 | PN ---
Subjective Date of Service: 12/26/18 Interval History: HD 3 on 12/26/2018 73 y/o F with history of HTN and depression presented with syncope and vomiting ; EMS noted HR of 20's- inc to 40 after atropine; Found to have complete heart block; Hah cardiac arrest with asystole in ED; awoke with CPR; underwent PPM. Overnight: Had low grade fever of 100.1 F at night VS stable No complaint at present Temp now is 98 F No chills, rigor, chest pain, cough, burning micturition. Objective Active Medications: Acetaminophen (Tylenol Tab*) 650 mg PO Q4H PRN PRN Reason: PAIN - MILD Last Admin: 12/26/18 04:45 Dose: 650 mg Cetirizine HCl (Zyrtec*) 10 mg PO DAILY [facility] Last Admin: 12/25/18 10:56 Dose: 10 mg Fluticasone Propionate (Flonase Nasal [place] 50mcg*) 2 spray BOTH NARES DAILY [facility] Last Admin: 12/25/18 10:57 Dose: 2 spray Heparin Sodium (Porcine) (Heparin Vial(*)) 5,000 units SUBCUT Q8HR [facility] Last Admin: 12/26/18 05:33 Dose: 5,000 units Oxycodone/Acetaminophen (Percocet 5/325 Tab*) 1 tab PO Q4H PRN PRN Reason: PAIN - MODERATE Last Admin: 12/25/18 11:08 Dose: 1 tab Sertraline HCl (Zoloft*) 150 mg PO DAILY [facility] Zolpidem Tartrate (Ambien Tab*) 5 mg PO ONCE PRN PRN Reason: INSOMNIA Vital Signs - 8 hr 12/25/18 12/26/18 12/26/18 23:41 00:00 03:14 Temperature 100.1 F 100.1 F Pulse Rate 83 86 Respiratory 14 16 Rate Blood Pressure 146/79 152/80 (mmHg) O2 Sat by Pulse 95 95 95 Oximetry 12/26/18 04:00 Temperature Pulse Rate Respiratory Rate Blood Pressure (mmHg) O2 Sat by Pulse 95 Oximetry Oxygen Devices in Use Now: None Exam: Patient is lying on a bed with no acute distress. HEENT: Normocephalic and atraumatic Lungs: Clear with no added sound Heart: S1/S2 heard with no murmur; Dressing present on left upper chest. No tenderness or soaking of pad Abdomen: soft, nondistended and nontender. Normal BS heard Extremitites: No swelling or cyanosis and clubbing Neuro: Alert, conscious and oriented Result Diagrams: 12/24/18 11:03 12/26/18 04:39 Assess/Plan/Problems-Billing Assessment: 73 y/o F with history of HTN and depression presented with syncope and vomiting ; EMS noted HR of 20's- inc to 40 after atropine; Found to have complete heart block; Had cardiac arrest with asystole in ED; awoke with CPR; underwent PPM. No complaint at present - Patient Problems (1) Cardiac arrest Status: Acute Code(s): I46.9 - CARDIAC ARREST, CAUSE UNSPECIFIED SNOMED Code (s): 675563933 Comment: Resolved; VS stable; low grade fever at night; temp normal now No complaint at present underwent PPM (2) Complete heart block Status: Acute Code(s): I44.2 - ATRIOVENTRICULAR BLOCK, COMPLETE SNOMED Code( s): 60061338 Comment: Presented with weakness, vomiting and syncope No history of Heart disease and not on any AV blocking meds. No tick bite; History negative for lyme disease, sarcoidosis, amyloidosis Electrolyte normal Cause unknown; could be fibrosis and sclerosis of conducting system as a part of normal aging Underwent PPM; Got cefazolin No symptom at present Echo normal with EF of 55-60%. (3) Hypertension Status: Acute Code(s): I10 - ESSENTIAL (PRIMARY) HYPERTENSION SNOMED Code(s) : 94363454 Comment: Used to take lisinopril 20 mg daily Bp on soft side On hold (4) Depression Status: Acute Code(s): F32.9 - MAJOR DEPRESSIVE DISORDER, SINGLE EPISODE, UNSPECIFIED SNOMED Code(s): 93857611 Comment: On zoloft 150 mg daily (5) DVT prophylaxis Status: Acute Code(s): Z29.9 - ENCOUNTER FOR PROPHYLACTIC MEASURES, UNSPECIFIED SNOMED Code(s): 918958065 Comment: On heparin (6) Full code status Status: Acute Code(s): Z78.9 - OTHER SPECIFIED HEALTH STATUS SNOMED Code(s) : 262677744 Status and Disposition: Medicine Inpatient; Cardiology following d/c today Attending: Hilda Downey Attestation Documenting Resident: Keshia Huizar Supervising Physician: Hilda Downey Attending/Supervising Physician Comment: Agree with resident note. Pt with CHB s/p successful PPM and no acute vents in post 24 hour monitoring period. Will follow with outpt PCP, cardiology, also have sent for home PT Attestation: This service has been performed in part by a resident under the direction of a teaching physician.I, Hilda Downey, performed the service, or was physically present during the critical, or guerra portions of the service, furnished by the resident. I participated in the management of the patient.
[2018-12-26] MEDS ORDERED: Sertraline* 100 MG TAB PO SCH (09:00)
== END 2018-12-26 07:50 | DRG 242 ==
LOC: ED 10:24 → ICU 12:26 → UNDOADMIN 12:26 → ICU 16:27 → MEDTELE 16:27
PROVIDERS: ADMIT Internal Medicine; ATTEND Internal Medicine
PROC: 02HK3JZ Insertion of Pacemaker Lead into Right Ventricle, Percutaneous Approach (ICD-10-PCS; 2018-12-24)
PROC: 02H63JZ Insertion of Pacemaker Lead into Right Atrium, Percutaneous Approach (ICD-10-PCS; 2018-12-24)
PROC: 5A1223Z Performance of Cardiac Pacing, Continuous (ICD-10-PCS; 2018-12-24)
PROC: 0JH606Z Insertion of Pacemaker, Dual Chamber into Chest Subcutaneous Tissue and Fascia, Open Approach (ICD-10-PCS; principal; 2018-12-24 14:00)
DX: I44.2 Atrioventricular block, complete (principal); I46.2 Cardiac arrest due to underlying cardiac condition; G89.29 Other chronic pain; M81.0 Age-related osteoporosis without current pathological fracture; M19.90 Unspecified osteoarthritis, unspecified site; I48.91 Unspecified atrial fibrillation; R00.1 Bradycardia, unspecified; I10 Essential (primary) hypertension; R50.9 Fever, unspecified; E78.00 Pure hypercholesterolemia, unspecified; K21.9 Gastro-esophageal reflux disease without esophagitis; K58.9 Irritable bowel syndrome, unspecified; H35.30 Unspecified macular degeneration; J30.2 Other seasonal allergic rhinitis; R79.89 Other specified abnormal findings of blood chemistry; R74.0 Nonspecific elevation of levels of transaminase and lactic acid dehydrogenase [LDH]; W18.30XA Fall on same level, unspecified, initial encounter; Y92.009 Unspecified place in unspecified non-institutional (private) residence as the place of occurrence of the external cause; Z72.89 Other problems related to lifestyle; Z90.710 Acquired absence of both cervix and uterus
CPT/HCPCS: 33208; 36415; 70450; 71045; 71046; 72125; 80048; 80053; 81003; 82550; 82553; 83605; 83735; 83880; 84436; 84443; 84484; 85025; 85379; 85610; 85730; 86617; 86618; 93005; 93306; 99156; 99157; 99284; A9270-GY; C1785; C1892; C1898; J0461; J0690; J1265; J1644; J2250; J2405; J3010

== ENCOUNTER 2019-05-30 09:18 | Observation (INO) | payer MEDICARE ==
[2019-05-30] MEDS ORDERED: Aspirin 81 mg CHEW TAB* 81 MG TAB.CHEW PO ONE (09:55)
[2019-05-30 10:08] LABS: Hematocrit 42 % (35-47); Hemoglobin 14.1 g/dL (12.0-16.0); Mean Corpuscular HGB Conc 34 g/dL (31-36); Mean Corpuscular Hemoglobin 32 pg (27-31); Mean Corpuscular Volume 95 fL (80-97); Platelet Count 244 10^3/uL (150-450); Red Blood Count 4.39 10^6 /uL (3.70-4.87); Red Cell Distribution Width 15 % (10-15); White Blood Count 8.9 10^3/uL (3.5-10.8)
--- NOTE | 2019-05-30 10:14 | ED ---
HPI Chest Pain - HPI Summary HPI Summary: Patient is a 74-year-old female who presents emergency department for left- sided sharp chest pain started around 0 100 today. Patient notes pain woke her out of sleep. Pain is worse with deep inspiration. Patient denies lightheadedness dizziness, abdominal pain, vomiting, diaphoresis, syncope. Patient denies recent illness, fever, cough, abdominal pain. Past medical history of hypertension and third-degree heart block. Patient had pacemaker placed 6 months ago for heart block. Symptoms are moderate in severity. Patient otherwise denies history of cancer, leg swelling, hypercoagulability. - History of Current Complaint Chief Complaint: EDChestWallPain Time Seen by Provider: 05/30/19 09:43 Hx Obtained From: Patient Pain Intensity: 5 - Additional Pertinent History Primary Care Physician: NII - Allergy/Home Medications Allergies/Adverse Reactions: Allergies Allergy/AdvReac Type Severity Reaction Status Date / Time No Known Allergies Allergy Verified 05/30/19 09:21 Home Medications: Home Medications Calcium Carb/Vit D3/Minerals [Calcium 600+D Plus Minerals Tb] 2 tab PO DAILY 11/04 [History Confirmed 05/30/19] Cetirizine* [ZyrTEC 10 MG TAB*] 10 mg PO DAILY 12/24/18 [History Confirmed 05/29] Diclofenac 1% GEL (NF) [Voltaren 1% GEL (NF)] 1 applic TOPICAL QID PRN 12/24/18 [History Confirmed 05/30/19] Fluticasone NASAL SPRAY 50MCG* [Flonase NASAL SPRAY 50MCG*] 2 spray BOTH NARES DAILY 12/24/18 [History Confirmed 05/30/19] Magnesium Oxide TAB* [MagOx 400 TAB*] 250 mg PO DAILY 12/24/18 [History Confirmed 05/30/19] Vitamin B Complex CAP* [B Complex CAP*] 1 cap PO DAILY 12/24/18 [History Confirmed 05/30/19] Sertraline* [Zoloft*] 150 mg PO DAILY tab 12/25/18 [Rx Confirmed 05/30/19] lisinopriL [Lisinopril] 20 mg PO DAILY 30 Days #30 tablet 12/25/18 [Rx Confirmed 05/30/19] Albuterol inh POWDER (NF) [Proair Respiclick] 2 puff INH Q4H PRN 05/30/19 [ History Confirmed 05/30/19] Dextromethorphan Hb/Doxylamine [Robitussin Nighttime Cough Dm] 15 ml PO DAILY PRN 05/30/19 [History Confirmed 05/30/19] Inulin/Chromium Picolinate [Fiber Gummies] 1 each PO DAILY 05/30/19 [History Confirmed 05/30/19] Ubidecarenone [Coq-10 Tr] 200 mg PO DAILY 05/30/19 [History Confirmed 05/30/19] Vit C/E/Zn/Coppr/Lutein/Zeaxan [Preservision Areds 2 Softgel] 2 each PO DAILY [History Confirmed 05/30/19] PMH/Surg Hx/FS Hx/Imm Hx Previously Healthy: Yes Endocrine/Hematology History: Reports: Other Endocrine/Hematological Disorders - hyperlipidemia Cardiovascular History: Reports: Hx Hypercholesterolemia, Hx Hypertension, Hx Pacemaker/ICD - FOR BRADYCARDIA Denies: Hx Myocardial Infarction Respiratory History: Reports: Hx Seasonal Allergies GI History: Reports: Hx Gastroesophageal Reflux Disease, Hx Irritable Bowel Musculoskeletal History: Reports: Other Musculoskeletal History - generalized muscle weakness, trochanteric bursitis Sensory History: Reports: Hx Contacts or Glasses, Hx Macular Degeneration Denies: Hx Hearing Aid Opthamlomology History: Reports: Hx Contacts or Glasses, Hx Macular Degeneration Psychiatric History: Reports: Hx Depression, Other Psychiatric Issues/Disorders - MDD, alcohol dependence - Cancer History Hx Chemotherapy: No Hx Radiation Therapy: No - Surgical History Surgery Procedure, Year, and Place: hysterectomy - Immunization History Date of Influenza Vaccine: 12/18/2018 Infectious Disease History: No Infectious Disease History: Denies: Hx Clostridium Difficile, Hx Hepatitis, Hx Human Immunodeficiency Virus (HIV), Traveled Outside the [place] in Last 30 Days - Family History Known Family History: Positive: Cardiac Disease - CHF, Other - NEG: breast cancer - Social History Occupation: Retired Lives: With Family Alcohol Use: Daily Alcohol Amount: 3-4 glasses of white wine Substance Use Type: Reports: None Hx Tobacco Use: No Smoking Status (MU): Never Smoked Tobacco Review of Systems Constitutional: Negative Negative: Fever ENT: Negative Positive: Chest Pain Positive: Shortness Of Breath. Negative: Cough Gastrointestinal: Negative Negative: Abdominal Pain, Vomiting, Diarrhea Genitourinary: Negative Musculoskeletal: Negative Skin: Negative Neurological/Mental Status: Negative All Other Systems Reviewed And Are Negative: Yes Physical Exam Triage Information Reviewed: Yes Vital Signs On Initial Exam: Initial Vitals Temp Pulse Resp BP Pulse Ox 98.1 F 93 16 121/91 96 05/30/19 09:18 05/30/19 09:18 05/30/19 09:18 05/30/19 09:18 05/30/19 09:18 Vital Signs Reviewed: Yes Appearance: Positive: Well-Appearing - Pt. sitting up in bed in NAD. Skin: Positive: Warm, Dry Head/Face: Positive: Normal Head/Face Inspection Eyes: Positive: Normal, EOMI Neck: Positive: Supple Respiratory/Lung Sounds: Positive: Clear to Auscultation, Breath Sounds Present. Negative: Rales, Rhonchi, Wheezes, Fatigue Cardiovascular: Positive: Normal, RRR Musculoskeletal: Positive: Normal, Strength/ROM Intact. Negative: Edema Left, Edema Right Neurological: Positive: Normal, CN Intact II-III Psychiatric: Positive: Affect/Mood Appropriate Procedures - Sedation Patient Received Moderate/Deep Sedation with Procedure: No Diagnostics - Vital Signs Vital Signs Temp Pulse Resp BP Pulse Ox 05/30/19 09:39 111 05/30/19 09:18 98.1 F 93 16 121/91 96 - Laboratory Lab Results: Lab Results 05/30/19 Range/Units 09:53 WBC 8.9 (3.5-10.8) 10^3/uL RBC 4.39 (3.70-4.87) 10^6 /uL Hgb 14.1 (12.0-16.0) g/dL Hct 42 (35-47) % MCV 95 (80-97) fL MCH 32 H (27-31) pg MCHC 34 (31-36) g/dL RDW 15 (10-15) % Plt Count 244 (150-450) 10^3/uL MPV 8.0 (7.4-10.4) fL Neut % (Auto) Pending Lymph % (Auto) Pending [place] % (Auto) Pending Eos % (Auto) Pending Baso % (Auto) Pending Absolute Neuts (auto) Pending Absolute Lymphs (auto) Pending Absolute Monos (auto) Pending Absolute Eos (auto) Pending Absolute Basos (auto) Pending Absolute Nucleated RBC Pending Nucleated RBC % Pending Result Diagrams: 05/30/19 09:53 03/13/20 09:53 Lab Statement: Any lab studies that have been ordered have been reviewed, and results considered in the medical decision making process. Chest Pain Course/Dx - Course Course Of Treatment: Pt. with left side chest pain and SOB. Afebrile. HR initially elevated. O2 saturation 96% on RA which is normal. 324mg ASA given. ECG done at 927 shows a paced ventricular rhythm of 85bpm, normal axis, similar to prior tracing. CXR negative for acute findings per radiology. Labs show minimal elevation of troponin at 0.03. Adjusted ddimer negative. Low risk for PE based on WElls. HEART score 4, moderate risk. Case reviewed with Dr. Loo who agrees with admission. Case discussed with Dr. Piper, hospitalist , who will admit pt. to his service for further cardiac workup. - Chest Pain Differential Diagnosis/HQI/PQRI: Acute OR, ACS, Angina, Chest Wall, Lower Respiratory Infection, Pulmonary Embolism - Diagnoses Provider Diagnoses: Chest pain, Elevated troponin I level Discharge ED - Sign-Out/Discharge Documenting (check all that apply): Patient Departure - Discharge Plan Condition: Stable Disposition: ADMITTED TO [facility] - Billing Disposition and Condition Condition: STABLE Disposition: Admitted to [facility] - Attestation Statements Provider Attestation: I was available for consultation for this patient. I did not evaluate the patient or participate in any medical decision making or disposition decisions unless I am specifically named in the chart as having consulted on the patient. If I have consulted on the patient, please see my own ED note on the patient encounter. Del Loo MD
[2019-05-30 10:20] LABS: ABS Monocytes 0.9 10^3/ul (0-0.8); ABS Neutrophils 6.9 10^3/ul (1.5-7.7); Eosinophil % 0.5 %; Lymphocyte % 11.3 %
[2019-05-30 10:27] LABS: Albumin 4.2 g/dL (3.2-5.2); Albumin/Globulin Ratio 1.8 (1-3); Calcium 8.9 mg/dL (8.6-10.3); EGFR African American 145.5 (>60); EGFR Non-African American 120.3 (>60); Globulin 2.4 g/dL (2-4); Magnesium 1.6 mg/dL (1.9-2.7); Potassium 3.7 mmol/L (3.5-5.0); Total Bilirubin 0.9 mg/dL (0.2-1.0); Total Protein 6.6 g/dL (6.4-8.9)
[2019-05-30 10:31] LABS: Troponin I 0.03 ng/mL (<0.03)
[2019-05-30 10:40] LABS: TSH (Thyroid Stimulating Horm) 1.16 mcIU/mL (0.34-5.60)
[2019-05-30 11:50] LABS: Activated Partial Thrombo Time 28.1 seconds (26.0-38.0); INR 0.96 (0.82-1.09)
[2019-05-30] MEDS ORDERED: Albuterol HFA INHALER* 8 gm MDI INH PRN (14:03)
[2019-05-30] MEDS ORDERED: Docusate CAP* 100 MG PO PRN (14:04)
[2019-05-30] MEDS ORDERED: Senna TAB 8.6 mg* TAB PO PRN (14:04)
[2019-05-30] MEDS ORDERED: Ondansetron INJ* 2 MG/ML VIAL IV PRN (14:04)
[2019-05-30] MEDS ORDERED: Iohexol 350* (CONTRAST) 500 ML MDV IV ONE (14:10)
--- NOTE | 2019-05-30 15:53 | HP ---
CC: Dr. Lambert * ADMISSION HISTORY AND PHYSICAL: DATE OF ADMISSION: 05/30/19 PRIMARY CARE PROVIDER: Dr. Lambert. HEALTHCARE PROXY: Her . CODE STATUS: Full. SOURCE OF INFORMATION: History obtained from interview with the patient and review of past medical records. RELIABILITY: Good. CHIEF COMPLAINT: Chest discomfort. HISTORY OF PRESENT ILLNESS: This is a 74-year-old female with past medical history of recent hospital stay here in December 2018 after presenting with syncope, found with complete heart block with subsequent period of 20 seconds asystole, status post CPR with ROSC, placement of a transvenous pacer followed by an implantable permanent pacemaker, discharged 24 hours later without complications, who had been in her usual state of health until several days prior to presentation, started to notice that she was taking more shallow breaths associated with pleurisy with deep inspiration. She noted the day prior to presentation she had increased shortness of breath with ambulation, woke up at 1 a.m. on the morning of admission with pain that was most significant on her left breast, radiating up her left arm, her left neck, her left back that was described as throbbing, sudden onset, and constant that had not relieved by the time she was seen in the emergency room approximately 13 hours later. She notes it was not associated with increased shortness of breath compared to what she had been experiencing the several days prior; however, she did notice sensation of dizziness, nausea, but no diaphoresis, loss of consciousness, or near loss of consciousness. She denies any recent sick contacts or cough. No new medications except the addition of B12. No fevers or chills. PAST MEDICAL HISTORY: OA; depression; heart block, status post permanent pacemaker in December 2018; hypertension. PAST SURGICAL HISTORY: History of hysterectomy. HOME MEDICATIONS: Include: 1. Dextromethorphan as needed. 2. CoQ10 200 mg daily. 3. Fiber gummies 1 each daily. 4. PreserVision AREDS 2 daily. 5. Voltaren 1% topically 4 times a day as needed. 6. Cetirizine 10 mg daily. 7. Vitamin B complex 1 tab daily. 8. Flonase 2 sprays both nares daily. 9. Calcium with vitamin D 2 tabs daily. 10. Lisinopril 20 mg daily. 11. Zoloft 150 mg daily. 12. Magnesium 250 mg daily. 13. Albuterol RespiClick 2 puffs every 4 hours as needed for shortness of breath. ALLERGIES: No known drug allergies. FAMILY HISTORY: No history of CAD, but her father had reported history of CHF. SOCIAL HISTORY: She is retired. She currently lives at [facility]. No history of tobacco. She drinks 3 to 5 glasses of wine per night approximately 1 bottle. REVIEW OF SYSTEMS: As per HPI. Otherwise, all other systems negative. PHYSICAL EXAMINATION GENERAL: Sitting up in bed, interactive, pleasant, in no apparent distress, talks in full sentences. VITAL SIGNS: When seen by this author, 132/88; heart rate is 90 beats per minute, however, brief burst up to 170 noted on telemetry; she is breathing approximately 16 breaths per minute; she is 94% on room air; her T-max is 98.1. HEENT: Oropharynx is clear. She has moist mucous membranes. Sclerae are anicteric. NECK: She has non-elevated JVD. No supraclavicular or cervical lymphadenopathy. LUNGS: Have trace rales in her left base, otherwise clear. HEART: She has a regular rate and rhythm with early systolic ejection murmur, loudest in her left lower sternal border. ABDOMEN: Soft, nontender, nondistended with positive bowel sounds. EXTREMITIES: Warm and well perfused without clubbing, cyanosis, or edema. NEUROLOGIC: She is alert and oriented x3. Cranial nerves II through XII are intact. DIAGNOSTIC STUDIES/LAB DATA: Pertinent labs: First troponin 0.03, decreased to 0.02. TSH is 1.16. Her D-dimer is 272. White blood cell count 8.9, hemoglobin 14.1, platelets 244. Pertinent data: EKG: Ventricularly paced majority of her beats. Chest x-ray: No active cardiopulmonary disease on this author's interpretation. ASSESSMENT AND PLAN: This is a 74-year-old female with past medical history of brief episode of asystole in the setting of complete heart block, status post placement of permanent pacemaker in December 2018, now presenting with sudden onset chest pain that has not yet resolved, with minimally elevated troponin of 0.03. 1. Chest pain. Concern for pulmonary embolism given several days preceding shortness of breath and pleuritic nature of her pain as well as sudden onset severe pain. Additionally, she has had brief episodes of tachycardia noted on telemetry. Underlying pulmonary embolism should be ruled out. I have ordered CTA. If her CTA is negative, I would also like to interrogate her pacer in the setting of abnormalities noted on telemetry. We will continue to monitor on telemetry. Continue aspirin low-dose, which is a new medication. She was given high-dose aspirin on presentation to the emergency room. Of note, the patient does have tenderness to palpation in the precordial region as well as under her left breast in the area that she describes pain, so costochondritis is certainly on the differential. I do think we would need to rule out underlying ischemia in the setting of her presentation and HEART score of at least 4 in the setting of her age, comorbid hypertension, troponin of 0.03, and the story gives her a HEART score of at least 4. 2. Alcohol use. When she was here previously, she was placed on the WAM score. It does not appear she received any medication. Continue to monitor. If evidence of withdrawal, initiate benzodiazepines. Counseled cessation and/ or decreasing her alcohol intake. 3. Hypertension. Continue lisinopril. 4. Depression. Continue sertraline. 5. DVT prophylaxis: Lovenox. [id number]/[facility] #: [id number] DOMENIC
[2019-05-30 16:51] LABS: Troponin I 0.03 ng/mL (<0.03)
[2019-05-30] MEDS: Acetaminophen TAB* 325 MG PO PRN (21:37)
[2019-05-30] MEDS: Heparin VIAL(*) 5000 UNITS/ML VIAL (FIVE THOUSAND) SUBCUT SCH (21:38)
[2019-05-31] MEDS: Lisinopril TAB* 10 MG PO SCH (09:08)
[2019-05-31] MEDS: Cetirizine* 10 MG TAB PO SCH (09:08)
[2019-05-31] MEDS: Aspirin 81 mg CHEW TAB* 81 MG TAB.CHEW PO SCH (09:08)
[2019-05-31] MEDS: Sertraline* 100 MG TAB PO SCH (09:09)
[2019-05-31] MEDS: Acetaminophen TAB* 325 MG PO PRN (09:09)
[2019-05-31] MEDS: COENZYME Q10 ENTER STREGNTH PO SCH (09:11)
[2019-05-31] MEDS: DIRECTIONS PO SCH (09:11)
[2019-05-31] MEDS: MINS PO SCH (09:12)
[2019-05-31] MEDS: MAGNESIUM OXIDE 250 MG PO SCH (09:12)
[2019-05-31] MEDS: Heparin VIAL(*) 5000 UNITS/ML VIAL (FIVE THOUSAND) SUBCUT SCH ×2 (09:12→21:25)
[2019-05-31] MEDS: Fluticasone NASAL SPRAY 50MCG* 16 gm SPRAY BTL BOTH NARES SCH (09:12)
[2019-05-31] MEDS: MULTIVITAMINS AREDS2 PO SCH (09:12)
[2019-05-31 12:10] LABS: C Reactive Protein 121.36 mg/L (<8.01)
[2019-05-31 12:27] LABS: Troponin I 0.03 ng/mL (<0.03)
--- NOTE | 2019-05-31 18:04 | PN ---
Subjective Date of Service: 05/31/19 Interval History: Pleuritic pain continues and still TTP walking around unit multiple times without worsening chest pain Objective Active Medications: Acetaminophen (Tylenol Tab*) 650 mg PO Q4H PRN PRN Reason: MILD PAIN or TEMP > 100.4 Last Admin: 05/31/19 09:09 Dose: 650 mg Albuterol (Ventolin Hfa Inhaler*) 2 puff INH Q4H PRN PRN Reason: SOB/WHEEZING Aspirin (Aspirin 81 Mg Chew Tab*) 81 mg PO DAILY [facility] Last Admin: 05/31/19 09:08 Dose: 81 mg Cetirizine HCl (Zyrtec*) 10 mg PO DAILY [facility] Last Admin: 05/31/19 09:08 Dose: 10 mg Coenzyme Q10 (Coenzyme Q10 (Nf)) 1 cap PO DAILY [facility] Last Admin: 05/31/19 09:11 Dose: Not Given Docusate Sodium (Colace Cap*) 100 mg PO BID PRN PRN Reason: CONSTIPATION Fluticasone Propionate (Flonase Nasal [place] 50mcg*) 2 spray BOTH NARES DAILY [facility] Last Admin: 05/31/19 09:12 Dose: Not Given Heparin Sodium (Porcine) (Heparin Vial(*)) 5,000 units SUBCUT Q12HR [facility] Last Admin: 05/31/19 09:12 Dose: 5,000 units Lisinopril (Prinivil Tab*) 20 mg PO DAILY [facility] Last Admin: 05/31/19 09:08 Dose: 20 mg Multivitamins/Minerals (Preservision Areds 2) 1 cap PO DAILY [facility] Last Admin: 05/31/19 09:12 Dose: Not Given Nf: Magnesium Oxide (250mg) 250 dose PO DAILY [facility] Last Admin: 05/31/19 09:12 Dose: Not Given Ondansetron HCl (Zofran Inj*) 4 mg IV Q4H PRN PRN Reason: NAUSEA/VOMITING Senna (Senokot 8.6 Mg Tab*) 1 tab PO BID PRN PRN Reason: CONSTIPATION Sertraline HCl (Zoloft*) 150 mg PO DAILY [facility] Last Admin: 05/31/19 09:09 Dose: 150 mg Vital Signs - 8 hr 05/31/19 05/31/19 05/31/19 11:15 12:52 15:15 Temperature 98 F 97.8 F Pulse Rate 79 79 Respiratory 16 16 Rate Blood Pressure 95/62 104/68 104/60 (mmHg) O2 Sat by Pulse 97 97 Oximetry Oxygen Devices in Use Now: None Appearance: NAD Eyes: No Scleral Icterus, PERRLA Ears/Nose/Mouth/Throat: NL Teeth, Lips, Gums, Clear Oropharnyx Neck: NL Appearance and Movements; NL JVP, Trachea Midline Respiratory: Symmetrical Chest Expansion and Respiratory Effort, Clear to Auscultation Cardiovascular: RRR Abdominal: NL Sounds; No Tenderness; No Distention, No Hepatosplenomegaly Lymphatic: No Cervical Adenopathy Extremities: No Edema, - - left chest wall TTP Skin: No Rash or Ulcers Neurological: Alert and Oriented x 3 Result Diagrams: 05/30/19 09:53 05/30/19 09:53 Additional Lab and Data: Lab Results 05/30/19 Range/Units 09:53 WBC 8.9 (3.5-10.8) 10^3/uL RBC 4.39 (3.70-4.87) 10^6 /uL Hgb 14.1 (12.0-16.0) g/dL Hct 42 (35-47) % MCV 95 (80-97) fL MCH 32 H (27-31) pg MCHC 34 (31-36) g/dL RDW 15 (10-15) % Plt Count 244 (150-450) 10^3/uL MPV 8.0 (7.4-10.4) fL Neut % (Auto) Pending Lymph % (Auto) Pending [place] % (Auto) Pending Eos % (Auto) Pending Baso % (Auto) Pending Absolute Neuts (auto) Pending Absolute Lymphs (auto) Pending Absolute Monos (auto) Pending Absolute Eos (auto) Pending Absolute Basos (auto) Pending Absolute Nucleated RBC Pending Nucleated RBC % Pending Assess/Plan/Problems-Billing Assessment: 74 yo F h/o HTN, heart block s/p PPM presented with chest discomfort - Patient Problems (1) Chest pain Comment: trops remain flat, EKG paced and difficult to interpret Doubt ACS with stable trops in setting of continued pain suspect costochondritis - preceeding GI illness in house followed by pain and very tender to palpation now Pericarditis possible, CRP up and ESR not. Will check TTE in AM (2) Depression Comment: On zoloft 150 mg daily (3) Hypertension Comment: lisinopril (4) DVT prophylaxis Comment: On heparin
[2019-06-01] MEDS: Sertraline* 100 MG TAB PO SCH (08:36)
[2019-06-01] MEDS: Aspirin 81 mg CHEW TAB* 81 MG TAB.CHEW PO SCH (08:36)
[2019-06-01] MEDS: Cetirizine* 10 MG TAB PO SCH (08:37)
[2019-06-01] MEDS: COENZYME Q10 ENTER STREGNTH PO SCH (08:37)
[2019-06-01] MEDS: Lisinopril TAB* 10 MG PO SCH (08:37)
[2019-06-01] MEDS: DIRECTIONS PO SCH (08:37)
[2019-06-01] MEDS: Heparin VIAL(*) 5000 UNITS/ML VIAL (FIVE THOUSAND) SUBCUT SCH (08:38)
[2019-06-01] MEDS: MAGNESIUM OXIDE 250 MG PO SCH (08:41)
[2019-06-01] MEDS: Acetaminophen TAB* 325 MG PO PRN ×2 (08:43→13:51)
[2019-06-01] MEDS: Fluticasone NASAL SPRAY 50MCG* 16 gm SPRAY BTL BOTH NARES SCH (09:06)
[2019-06-01] MEDS: MINS PO SCH (09:06)
[2019-06-01] MEDS: MULTIVITAMINS AREDS2 PO SCH (09:06)
[2019-06-01] MEDS ORDERED: Ibuprofen TAB* 800 MG PO PRN (11:15)
--- NOTE | 2019-06-01 12:47 | ECHO ---
*[facility]* [place] [address] Fax #: [phone] Transthoracic Echocardiogram Patient: Ashli Nicole : 1945 Study Date: 06/01/2019 Age: 74 Gender: F HR: 69 bpm Height: 61 in /154.9 cm BSA: 1.62 m^2 Weight: 138.7 lb /63.1 kg BMI: 26.3 kg/m^2 *Clinical Liaison: * Kati Moseley [facility] *Referring Physician: * Walter Piper *Reading Physician: * Kylie Reynolds MD Indications: SOB. History: Risk factors: Hypertension. Labs, prior tests, procedures, and surgery: Permanent pacemaker system implantation (December 2018). Conclusions Summary: - Left ventricle: The cavity size is below normal. Wall thickness is mildly increased. Systolic function is normal. The estimated ejection fraction is 60-65%. - Right ventricle: Pacer wire noted in the right ventricle. - Mitral valve: There is trace to mild regurgitation. - Aortic valve: There is trace regurgitation. - Tricuspid valve: There is trace to mild regurgitation. - Pericardium, extracardiac: A possible, small pericardial effusion is identified circumferential to the heart. Measuring 0.6 cm adjacent to right ventricle free wall and 0.1 cm posteriorly in PLAX. Measuring 0.8 cm ajacent to right ventricle in PSAX at the papillary muscle level. There is no evidence of hemodynamic compromise. The respiration variations measured 3% at the mitral valve, 6 % at left ventricular outflow tract, and 21% at tricuspid valve. - No hemodynamic compromise. - C/t 12/31/2018, no overt significant changes. Study data: Transthoracic echocardiogram. Procedure: Transthoracic echocardiography was performed. Image quality was fair. Complete 2D, spectral Doppler, and color flow Doppler. Location: Bedside. Patient status: Inpatient. Patient room number: 445-05. Rhythm: Paced rhythm. Findings Left ventricle: The cavity size is below normal. Wall thickness is mildly increased. Systolic function is normal. The estimated ejection fraction is 60-65%. Wall motion is normal; there are no regional wall motion abnormalities. Doppler parameters are consistent with abnormal left ventricular relaxation (grade 1 diastolic dysfunction). Right ventricle: The cavity size is normal. Pacer wire noted in the right ventricle. Systolic function is normal. Systolic pressure is within the normal range. Ventricular septum: There is abnormal interventricular septal wall motion consistent with an RV pacemaker. Left atrium: The atrium is normal in size. Right atrium: The atrium is normal in size. Pacer wire noted in right atrium. Mitral valve: The Mitral valve annulus appears mildly calcified. The leaflets are mildly thickened. There is no evidence of stenosis. There is trace to mild regurgitation. Aortic valve: The valve is trileaflet. The leaflets are mildly thickened. There is no evidence of stenosis. There is trace regurgitation. Tricuspid valve: The leaflets are normal thickness. There is no evidence of stenosis. There is trace to mild regurgitation. Pulmonic valve: The leaflets are normal thickness. There is no evidence of stenosis. There is trace regurgitation. Aorta: Aortic root: The aortic root is appears normal. Ascending aorta: The ascending aorta is appears normal. Aortic arch: The aortic arch is appears normal. Pericardium: A possible, small pericardial effusion is identified circumferential to the heart. Measuring 0.6 cm adjacent to right ventricle free wall and 0.1 cm posteriorly in PLAX. Measuring 0.8 cm ajacent to right ventricle in PSAX at the papillary muscle level. There is no evidence of hemodynamic compromise. The respiration variations measured 3% at the mitral valve, 6 % at left ventricular outflow tract, and 21% at tricuspid valve. Pulmonary arteries: The main pulmonary artery is normal-sized. Systolic pressure is within the normal range. Systemic veins: Inferior vena cava: The vessel is normal in size. There is (>= 50%) respiratory change in the IVC dimension. Measurements Left ventricle Value Ref Aortic valve Value Ref CHELSEA, LAX (L) 3.4 cm 3.8 - 5.2 Jan diam, ED 1.9 cm ----- ESD, LAX (L) 1.9 cm 2.2 - 3.5 Peak v, S 1.57 m/sec ----- FS, LAX 45 % 27 - 45 VTI, S 30.0 cm ----- PW, ED, LAX (H) 1.1 cm 0.6 - 0.9 Mean grad, S 6.0 mm Hg ----- FS 45 % 27 - 45 Peak grad, S 10.0 mm Hg ----- Mid-wall FS 14 % LVOT/AV, VTI ratio 0.63 ----- PW, ED (H) 1.1 cm 0.6 - 0.9 FAISAL, VTI 1.99 cm^2 ----- E', lat jan, TDI (L) 5.2 cm/sec >=10.0 FAISAL, Vmax 1.80 cm^2 --- -- E/e', lat jan, 15 TDI Mitral valve Value Ref E', med jan, TDI (L) 5.2 cm/sec >=7.0 Peak E 0.76 m/sec --- -- E/e', med jan, 15 Peak A 1.08 m/sec ----- TDI Decel time 180 ms ----- E', avg, TDI 5.2 cm/sec Peak grad, D 2.3 mm Hg ----- E/e', avg, TDI (H) 15 <=14 Peak E/A ratio 0.7 --- -- LVOT Value Ref Pulmonic valve Value Ref Diam, S 2.00 cm Peak v, S 1.13 m/sec ----- Area 3.1 cm^2 Peak grad, S 5.0 mm Hg ----- Peak tamra, S 0.9 m/sec VTI, S 19.0 cm Tricuspid valve Value Ref Mean grad, S 2 mm Hg TR peak v 2.4 m/sec <=2.8 SV 57 ml Peak RV-RA grad, S 23 mm Hg ----- SV/bsa 35 ml/m^2 Aortic root Value Ref Ventricular septum Value Ref Root diam 2.9 cm <3.9 IVS, ED (H) 1.1 cm 0.6 - 0.9 Ascending aorta Value Ref Right ventricle Value Ref AAo AP diam, S 2.9 cm ----- CHELSEA, LAX 2.7 cm CHELSEA minor ax, A4C 3.2 cm 1.9 - 3.5 Aortic arch Value Ref mid Arch diam 2.7 cm ----- Pressure, S 26 mm Hg Decending aorta Value Ref Left atrium Value Ref Yee peak tamra 0.61 m/sec ----- AP dim, ES 2.80 cm 2.70 - 3.80 Pulmonary artery Value Ref ML dim, A4C 3.9 cm Pressure, S 21.0 mm Hg ----- SI dim, A4C 5.0 cm Vol/bsa, ES, 1-p 36 ml/m^2 11 - 40 Inferior vena cava Value Ref A4C Diam 1.6 cm ----- Vol/bsa, ES, A/L 32 ml/m^2 16 - 34 Right atrium Value Ref SI dim, ES 4.6 cm 3.4 - 5.3 ML dim, ES, A4C 4.1 cm 2.6 - 4.4 SI dim/bsa, ES, 2.9 cm/m^2 1.9 - 3.1 A4C Estimated RAP 3 mm Hg Legend: (L) and (H) farhad values outside specified reference range. Prepared and electronically signed by Kylie Renyolds MD 06/01/2019 12:46
[2019-06-01 20:16] VITALS: BP 103/63
--- NOTE | 2019-06-01 21:00 | DS ---
DISCHARGE SUMMARY: DATE OF ADMISSION: DATE OF DISCHARGE: 06/01/19 PRIMARY CARE PROVIDER: Dr. Beatrice Lambert. DISPOSITION ON DISCHARGE: Home. CONDITION ON DISCHARGE: Good. PRIMARY DIAGNOSIS: Costochondritis/suspect possible pericarditis. SECONDARY DIAGNOSES: Include: 1. History of depression. 2. Heart block, status post permanent pacemaker. 3. Hypertension. MEDICATIONS ON DISCHARGE: Include: 1. CoQ10 200 mg daily. 2. Fiber gummies 1 daily. 3. PreserVision AREDS 2 caps daily. 4. Diclofenac 1% gel topically 4 times a day as needed to affected area. 5. Cetirizine 10 mg daily. 6. Vitamin B complex daily. 7. Fluticasone nasal spray 2 sprays both nares daily. 8. Calcium plus vitamin D tabs 2 tabs daily. 9. Lisinopril 20 mg daily. 10. Zoloft 150 mg daily. 11. Magnesium oxide 250 mg daily. 12. Albuterol inhaler 2 puffs every 4 hours as needed. 13. Motrin 800 mg every 8 hours for 7 days. DIAGNOSTIC STUDIES/LAB DATA: Pertinent labs: ESR is 18 and 28 consecutively. CRP 121, decreased to 94 the following day. Troponin-I 0.03 on 3 consecutive checks. White blood cell count is 8.9, 78% neutrophils. Pertinent imaging studies: CTA of her chest and thorax, impression: No pulmonary embolism. Mild interstitial pulmonary edema and small left pleural effusion. Transthoracic echocardiogram, impression: EF 60% to 65%. Wall motion is normal. Grade 1 diastolic dysfunction. Left atrium is normal in size. Mitral valve is mildly calcified. No evidence of aortic stenosis, trace regurgitation. Tricuspid valve: Trace to mild regurgitation. Possible small pericardial effusion is identified circumferential to the heart. EKG is paced. HISTORY OF PRESENT ILLNESS AND HOSPITAL COURSE: This is a 74-year-old female presented to the hospital with chest discomfort associated with a day of increased shortness of breath, was noted on exam to have exquisite tenderness to palpation in the precordium as well as under her left breast in the area of her chest discomfort. Originally, there was concern for potential ischemia especially in the setting of her elevated troponin I 0.03, gradually decreased to 0.02 and then candy and remained at 0.03 on 2 consecutive checks. She did have a CRP checked, which was very high at 121 and there was concern for costochondritis given her tenderness to palpation; however, pericarditis is on the differential especially in the setting of a potential small pericardial effusion. The patient's chest pain was fairly consistent over the first 24 hours of stay; however, improved and was largely resolved by the time she left. Her pain was largely managed with Tylenol. I am discharging her on a 7-day course of Motrin standing, although I am not sure she has pericarditis and I did not start colchicine at this time. When she follows up, you may pay attention to her CRP, continue NSAIDs and/or add colchicine or discontinue altogether based on clinical exam and findings of decreased chest wall tenderness depending on what you find. I did not feel the patient was in need of a stress test at this time given atypical features as well as other clinical findings as indicated above. However, pursue in the future at your discretion. On the day of discharge, the patient was ambulated around the unit at least 10 times without any shortness of breath. Her lungs were clear. She has regular rate and rhythm. No murmurs, rubs, or gallops. At followup, please: 1. As indicated above, extend Motrin and/or add colchicine depending on clinical findings and/or repeat CRP. 2. Consider stress test in the future depending on clinical resolution of the patient's symptoms at this time. Reasons to return to the hospital including but not limited to recurrent or worsening symptoms, chest pain, shortness of breath, nausea, vomiting, lightheadedness, loss of consciousness or near loss of consciousness, bleeding from any source, fevers, inability to obtain or tolerate medications were discussed with the patient. TIME SPENT: Greater than 60 minutes was spent on the discharge of this patient , greater than half was spent [id number] with the patient. [id number]/[facility] #: [id number] DOMNEIC
== END 2019-06-01 16:25 | disposition home or self-care (01) ==
LOC: ED 09:18 → MEDTELE 14:04
PROVIDERS: ADMIT Internal Medicine; ATTEND Internal Medicine
DX: M94.0 Chondrocostal junction syndrome [Tietze] (principal); R07.9 Chest pain, unspecified; I45.9 Conduction disorder, unspecified; I10 Essential (primary) hypertension; F32.9 Major depressive disorder, single episode, unspecified; E78.00 Pure hypercholesterolemia, unspecified; M19.90 Unspecified osteoarthritis, unspecified site; K21.9 Gastro-esophageal reflux disease without esophagitis; R94.31 Abnormal electrocardiogram [ECG] [EKG]; R06.02 Shortness of breath; R79.89 Other specified abnormal findings of blood chemistry; Z95.0 Presence of cardiac pacemaker; Z79.899 Other long term (current) drug therapy; Z79.82 Long term (current) use of aspirin
CPT/HCPCS: 36415; 71045; 71275; 80053; 83605; 83735; 84443; 84484; 85025; 85379; 85610; 85652; 85730; 86140; 93005; 93306; 96372; 99284; A9270-GY; G0378; J1644; Q9967